=== PATIENT | female | born 1960 | race Caucasian/White ===

== ENCOUNTER 2017-06-27 11:33 | Emergency (ER) | payer BC ==
[2017-06-27] MEDS ORDERED: Sodium Chloride 0.9% 10 ML Syringe FLUSH PRN (11:51)
--- NOTE | 2017-06-27 12:31 | CR ---
Chest: Portable view of the chest was obtained. Comparison: No prior chest x-ray. Heart size at the upper limits of normal. Previous sternotomy is noted for CABG. Mild pulmonary vascular prominence is seen. Lungs otherwise are clear. Bony structures are unremarkable. Impression: 1. Heart size at the upper limits of normal. Mild pulmonary vascular prominence is seen. Without old films uncertain if this pulmonary vascular prominence is acute or chronic. 2. Nothing acute is otherwise seen. Diagnostic code #3
--- NOTE | 2017-06-27 16:00 | EDM.PDOC ---
ED HPI GENERAL MEDICAL PROBLEM - General Chief Complaint: Chest Pain Stated Complaint: [facility] Time Seen by Provider: 06/27/17 11:36 Source of Information: Reports: Patient, Provider History Limitations: Reports: No Limitations - History of Present Illness INITIAL COMMENTS - FREE TEXT/NARRATIVE: The patient presents with mid chest pain that has been on and off for 2 weeks. Five months ago she had 4 vessel bypass. She has been going good since. For the past 2 weeks she has had the pain but no shortness of breath. She denies fever or chills. She has no pain with exertion. She walks her dog in the morning without any problems. She has no abdominal pain, nausea or vomiting. She has no pain in her legs or edema. She saw Dr Monahan and he recommended she come to the ER and get some Onset: Gradual Duration: Week(s): (2) Location: Reports: Chest Quality: Reports: Sharp Severity: Mild Improves with: Reports: Immobilization Worsens with: Reports: Movement (Of her chest) Associated Symptoms: Reports: Chest Pain. Denies: Cough, Fever/Chills, Nausea/ Vomiting, Shortness of Breath Treatments [employer]: Reports: Aspirin, Nitroglycerin - Related Data Allergies Allergy/AdvReac Type Severity Reaction Status Date / Time codeine Allergy Nausea Verified 06/27/17 11:38 lisinopril Allergy Dizziness Verified 06/27/17 11:38 Home Meds: Home Meds Aspirin 325 mg PO DAILY 01/10/17 [History] Cholecalciferol (Vitamin D3) [Vitamin D3] 10,000 unit PO DAILY 01/10/17 [History ] Docusate Sodium 100 mg PO BID 01/10/17 [History] Furosemide [Lasix] 20 mg PO DAILY 01/10/17 [History] Hydrocodone/Acetaminophen [Hydrocodon-Acetaminoph 2.5-325] 1 each PO Q6H PRN [History] Insulin Detemir [Levemir] 18 unit SQ DAILY 01/10/17 [History] L.acidoph,Paracasei, B.lactis [Probiotic] 1 each PO DAILY 01/10/17 [History] Metoprolol Tartrate 12.5 mg PO BID 01/10/17 [History] Potassium Chloride 10 meq PO DAILY 01/10/17 [History] Rosuvastatin [Crestor] 20 mg PO DAILY 01/10/17 [History] SitaGLIPtin [Januvia] 50 mg PO DAILY 01/10/17 [History] metFORMIN [Glucophage] 1,000 mg PO BIDMEALS 01/10/17 [History] traMADol [Ultram] 50 mg PO Q4H PRN 01/10/17 [History] Past Medical History Cardiovascular History: Reports: High Cholesterol, PVD Endocrine/Metabolic History: Reports: Diabetes, Type II - Past Surgical History Cardiovascular Surgical History: Reports: Coronary Artery Bypass Social & Family History - Tobacco Use Smoking Status *Q: Former Smoker Years of Tobacco use: 20 Used Tobacco, but Quit: No - Alcohol Use Days Per Week of Alcohol Use: 0 - Recreational Drug Use Recreational Drug Use: No ED ROS GENERAL - Review of Systems Review Of Systems: See Below Constitutional: Reports: No Symptoms HEENT: Reports: No Symptoms Respiratory: Reports: No Symptoms Cardiovascular: Reports: Chest Pain Endocrine: Reports: No Symptoms GI/Abdominal: Reports: No Symptoms : Reports: No Symptoms Musculoskeletal: Reports: No Symptoms ED EXAM, GENERAL - Physical Exam Exam: See Below Exam Limited By: No Limitations General Appearance: Alert, No Apparent Distress Ears: Normal External Exam Nose: Normal Inspection Head: Atraumatic, Normocephalic Neck: Normal Inspection Respiratory/Chest: No Respiratory Distress, Lungs Clear, Normal Breath Sounds Cardiovascular: Regular Rate, Rhythm, No Edema, No Murmur GI/Abdominal: Soft, Non-Tender, No Organomegaly, No Mass Back Exam: Normal Inspection Extremities: Normal Inspection Neurological: Alert, Oriented, No Motor/Sensory Deficits EKG INTERPRETATION EKG Date: 06/27/17 Time: 11:45 Rhythm: NSR Rate (Beats/Min): 66 [place]: Normal P-Wave: Present QRS: Normal ST-T: Normal QT: Normal EKG Interpretation Comments: Q waves in the inferior leads Course - Vital Signs Last Recorded V/S: Last Vital Signs Temp 97.8 F 06/27/17 11:38 Pulse 80 06/27/17 15:50 Resp 16 06/27/17 15:50 BP 126/62 06/27/17 15:50 Pulse Ox 94 L 06/27/17 15:50 - Orders/Labs/Meds Orders: Active Orders 24 hr Category Date Time Status Cardiac Monitoring [RC] . DIRECTED Care 06/27/17 11:51 Active EKG Documentation Completion [RC] STAT Care 06/27/17 11:51 Active Oxygen Therapy [RC] PRN Care 06/27/17 11:51 Active Peripheral IV Care [RC] . DIRECTED Care 06/27/17 11:51 Active Sodium Chloride 0.9% [Saline Flush] Med 06/27/17 11:51 Active 10 ml FLUSH ASDIRECTED PRN Peripheral IV Insertion Adult [OM.PC] Stat Oth 06/27/17 11:51 Ordered Medication Orders Sodium Chloride (Saline Flush) 10 ml FLUSH ASDIRECTED PRN PRN Reason: Keep Vein Open Last Admin: 06/27/17 12:51 Dose: 10 ml Labs: Laboratory Tests 06/27/17 06/27/17 06/27/17 Range/Units 12:25 12:25 15:00 WBC 8.72 (3.98-10.04) K/mm3 RBC 4.84 (3.98-5.22) M/mm3 Hgb 14.1 (11.2-15.7) gm/L Hct 41.0 (34.1-44.9) % MCV 84.7 (79.4-94.8) fl MCH 29.1 (25.6-32.2) pg MCHC 34.4 (32.2-35.5) g/dl RDW Std Deviation 36.7 (36.4-46.3) fL Plt Count 268 (182-369) K/mm3 MPV 9.4 (9.4-12.3) fl Neut % (Auto) 56.4 (34.0-71.1) % Lymph % (Auto) 32.0 (19.3-51.7) % Pierce % (Auto) 9.3 (4.7-12.5) % Eos % (Auto) 1.8 (0.7-5.8) Baso % (Auto) 0.3 (0.1-1.2) % Neut # (Auto) 4.91 (1.56-6.13) K/mm3 Lymph # (Auto) 2.79 (1.18-3.74) K/mm3 Pierce # (Auto) 0.81 H (0.24-0.36) K/mm3 Eos # (Auto) 0.16 (0.04-0.36) K/mm3 Baso # (Auto) 0.03 (0.01-0.08) K/mm3 Sodium 138 (136-145) mEq/L Potassium 4.2 (3.5-5.1) mEq/L Chloride 102 (98-107) mEq/L Carbon Dioxide 27 (21-32) mEq/L Anion Gap 13.2 (5-15) BUN 15 (7-18) mg/dL Creatinine 0.6 (0.55-1.02) mg/dL Est Cr Clr Drug Dosing 87.18 mL/min Estimated GFR (MDRD) > 60 (>60) mL/min BUN/Creatinine Ratio 25.0 H (14-18) Glucose 138 H (74-106) mg/dL Calcium 9.5 (8.5-10.1) mg/dL Total Bilirubin 0.4 (0.2-1.0) mg/dL AST 39 H (15-37) U/L ALT 54 (14-59) U/L Alkaline Phosphatase 67 (46-116) U/L Troponin I 0.039 0.038 (0.00-0.056) ng/mL Total Protein 7.3 (6.4-8.2) g/dl Albumin 3.5 (3.4-5.0) g/dl Globulin 3.8 gm/dL Albumin/Globulin Ratio 0.9 L (1-2) Meds: Medications Generic Name Dose Route Start Last Admin Trade Name Freq PRN Reason Stop Dose Admin Sodium Chloride 10 ml 06/27/17 11:51 06/27/17 12:51 Saline Flush FLUSH 10 ml ASDIRECTED PRN Administration Keep Vein Open - Re-Assessments/Exams Free Text/Narrative Re-Assessment/Exam: 06/27/17 16:04 I ordered an IV saline lock, EKG, CXR and labs. She had aspirin and nitro on the way in. Her EKG shows NSR with some inferior Q waves. Her CXR was negative. Her CBC and CMP look good. Her troponin was negative. I did a repeat troponin 3 hours later and it was negative. I feel this is chest wall pain. I will discharge her home. Departure - Departure Time of Disposition: 16:10 Disposition: Home, Self-Care 01 Condition: Good Clinical Impression: Chest wall pain Referrals: Jay Jay Mckay MD [Primary Care Provider] - 1 Week Forms: ED Department Discharge Additional Instructions: Take your medication as prescribed. If you have some pain you can take motrin 400mg every 6 hours. Please return if you are worse. Follow up with your doctor in 1 week. - My Orders Last 24 Hours: My Active Orders 06/27/17 11:51 Cardiac Monitoring [RC] . DIRECTED EKG Documentation Completion [RC] STAT Oxygen Therapy [RC] PRN Peripheral IV Care [RC] . DIRECTED Sodium Chloride 0.9% [Saline Flush] 10 ml FLUSH ASDIRECTED PRN Peripheral IV Insertion Adult [OM.PC] Stat - Assessment/Plan Last 24 Hours: My Active Orders 06/27/17 11:51 Cardiac Monitoring [RC] . DIRECTED EKG Documentation Completion [RC] STAT Oxygen Therapy [RC] PRN Peripheral IV Care [RC] . DIRECTED Sodium Chloride 0.9% [Saline Flush] 10 ml FLUSH ASDIRECTED PRN Peripheral IV Insertion Adult [OM.PC] Stat
[2017-06-27 16:48] VITALS: BP 122/66
== END 2017-06-27 16:19 | disposition home or self-care (01) ==
LOC: JD.ED 11:33
DX: R07.89 Other chest pain (principal); E11.9 Type 2 diabetes mellitus without complications; E78.00 Pure hypercholesterolemia, unspecified; Z87.891 Personal history of nicotine dependence; Z95.1 Presence of aortocoronary bypass graft; Z79.82 Long term (current) use of aspirin; Z79.4 Long term (current) use of insulin; Z79.899 Other long term (current) drug therapy; Z88.5 Allergy status to narcotic agent; Z88.8 Allergy status to other drugs, medicaments and biological substances
CPT/HCPCS: 36415; 71010; 80053; 84484; 85025; 93005; 99285; J7050

== ENCOUNTER 2018-01-01 13:42 | Emergency (ER) | payer BC ==
--- NOTE | 2018-01-01 14:58 | CR ---
Chest: Portable view of the chest was obtained. Comparison: Prior chest x-ray of 06/27/17. Heart size and mediastinum are within normal limits for portable technique. Lungs are clear with no acute parenchymal densities. Previous sternotomy is noted for CABG. Bony structures are grossly intact. Impression: 1. Nothing acute is seen. Diagnostic code #2
[2018-01-01] MEDS ORDERED: Insulin Regular, Human 100 Units/ML 3 ML Vial SUBCUT ONE (15:32)
--- NOTE | 2018-01-01 16:38 | EDM.PDOC ---
ED HPI GENERAL MEDICAL PROBLEM - General Chief Complaint: Chest Pain Stated Complaint: CHEST TIGHTNESS Time Seen by Provider: 01/01/18 13:56 Source of Information: Reports: Patient, RN Notes Reviewed - History of Present Illness INITIAL COMMENTS - FREE TEXT/NARRATIVE: 57-year-old lady comes in with four-day duration of chest discomfort. This is been primarily mid chest and right anterior chest. He does have history of known coronary artery disease with previous multivessel bypass surgery about a year ago. Since the bypass surgery she "put on a lot of weight". She is type II diabetic. No recent cough fever or chills. Pain does not radiate to the back neck shoulder or arm. Pain is worse with deep breathing and also worse with certain types of motion. She does work as a checkout type person at [employer] Chest Pain Score (Numeric/FACES): 4 - Related Data Allergies Allergy/AdvReac Type Severity Reaction Status Date / Time codeine Allergy Nausea Verified 01/01/18 14:00 lisinopril Allergy Dizziness Verified 01/01/18 14:00 Home Meds: Home Meds Aspirin 325 mg PO DAILY 01/10/17 [History] Potassium Chloride 10 meq PO DAILY 01/10/17 [History] Rosuvastatin [Crestor] 20 mg PO DAILY 01/10/17 [History] Furosemide [Lasix] 20 mg PO DAILY 01/01/18 [History] Metoprolol Succinate 25 mg PO DAILY 01/01/18 [History] Tresiba 44 units SUBCUT DAILY 01/01/18 [History] metFORMIN [Glucophage XR] 1,000 mg PO BID 01/01/18 [History] Past Medical History Cardiovascular History: Reports: Bypass, High Cholesterol, PVD Endocrine/Metabolic History: Reports: Diabetes, Type II - Past Surgical History Cardiovascular Surgical History: Reports: Coronary Artery Bypass Social & Family History - Tobacco Use Smoking Status *Q: Never Smoker Years of Tobacco use: 20 Used Tobacco, but Quit: No - Caffeine Use Caffeine Use: Reports: Coffee - Alcohol Use Days Per Week of Alcohol Use: 0 - Recreational Drug Use Recreational Drug Use: No ED ROS GENERAL - Review of Systems Review Of Systems: See Below Constitutional: Denies: Fever, Chills HEENT: Denies: Throat Pain Respiratory: Denies: Shortness of Breath, Wheezing, Cough Cardiovascular: Reports: Chest Pain (For about the past 4 days) GI/Abdominal: Denies: Abdominal Pain, Nausea, Vomiting Musculoskeletal: Denies: Neck Pain, Shoulder Pain, Arm Pain, Back Pain Skin: Reports: No Symptoms Neurological: Denies: Numbness, Tingling ED EXAM, GENERAL - Physical Exam Exam: See Below General Appearance: Alert, No Apparent Distress Eye Exam: Bilateral Eye: PERRL Throat/Mouth: Normal Inspection, Normal Oropharynx Head: No: Facial Swelling Neck: Supple, Full Range of Motion Respiratory/Chest: No Respiratory Distress, Lungs Clear, Normal Breath Sounds, Other (There is quite severe tenderness and also reproducible pain with motion of the right sternal border) Cardiovascular: Regular Rate, Rhythm GI/Abdominal: Soft, Non-Tender Back Exam: No: CVA Tenderness (L), CVA Tenderness (R) Extremities: Normal Inspection. No: Pedal Edema Neurological: Alert, No Motor/Sensory Deficits Skin Exam: Warm, Dry, Normal Color EKG INTERPRETATION EKG Date: 01/01/18 Rhythm: NSR [place]: Normal P-Wave: Present QRS: Other (Q waves inferior leads) ST-T: Normal Course - Vital Signs Last Recorded V/S: Last Vital Signs Temp 98.8 F 01/01/18 16:55 Pulse 74 01/01/18 16:55 Resp 16 01/01/18 16:55 BP 131/76 01/01/18 16:55 Pulse Ox 98 01/01/18 16:55 - Orders/Labs/Meds Orders: Active Orders 24 hr Category Date Time Status EKG 12 Lead [EKG Documentation Completion] [RC] STAT Care 01/01/18 14:06 Active Labs: Laboratory Tests 01/01/18 01/01/18 01/01/18 Range/Units 14:22 14:22 16:51 WBC 9.16 (3.98-10.04) K/mm3 RBC 4.99 (3.98-5.22) M/mm3 Hgb 14.3 (11.2-15.7) gm/L Hct 41.7 (34.1-44.9) % MCV 83.6 (79.4-94.8) fl MCH 28.7 (25.6-32.2) pg MCHC 34.3 (32.2-35.5) g/dl RDW Std Deviation 36.8 (36.4-46.3) fL Plt Count 271 (182-369) K/mm3 MPV 9.7 (9.4-12.3) fl Neut % (Auto) 61.6 (34.0-71.1) % Lymph % (Auto) 28.8 (19.3-51.7) % [place] % (Auto) 7.8 (4.7-12.5) % Eos % (Auto) 1.2 (0.7-5.8) Baso % (Auto) 0.2 (0.1-1.2) % Neut # (Auto) 5.64 (1.56-6.13) K/mm3 Lymph # (Auto) 2.64 (1.18-3.74) K/mm3 [place] # (Auto) 0.71 H (0.24-0.36) K/mm3 Eos # (Auto) 0.11 (0.04-0.36) K/mm3 Baso # (Auto) 0.02 (0.01-0.08) K/mm3 Sodium 136 (136-145) mEq/L Potassium 3.9 (3.5-5.1) mEq/L Chloride 97 L (98-107) mEq/L Carbon Dioxide 26 (21-32) mEq/L Anion Gap 16.9 H (5-15) BUN 16 (7-18) mg/dL Creatinine 0.7 (0.55-1.02) mg/dL Est Cr Clr Drug Dosing 62.16 mL/min Estimated GFR (MDRD) > 60 (>60) mL/min BUN/Creatinine Ratio 22.9 H (14-18) Glucose 332 H (74-106) mg/dL POC Glucose 237 H (70-105) mg/dL Calcium 8.8 (8.5-10.1) mg/dL Total Bilirubin 0.2 (0.2-1.0) mg/dL AST 23 (15-37) U/L ALT 42 (14-59) U/L Alkaline Phosphatase 83 (46-116) U/L Troponin I 0.024 (0.00-0.056) ng/mL Total Protein 7.6 (6.4-8.2) g/dl Albumin 3.6 (3.4-5.0) g/dl Globulin 4.0 gm/dL Albumin/Globulin Ratio 0.9 L (1-2) Meds: Medications Discontinued Medications Generic Name Dose Route Start Last Admin Trade Name Mony PRN Reason Stop Dose Admin Insulin Human Regular 8 unit 01/01/18 15:32 01/01/18 15:41 Humulin R SUBCUT 01/01/18 15:33 8 units ONETIME ONE Administration - Re-Assessments/Exams Free Text/Narrative Re-Assessment/Exam: 01/01/18 19:20 EKG shows Q waves inferior leads, does not show acute changes. She has very significant wall tenderness right sternal border. The pain is worse with deep breathing and worse with certain types of motion, twisting and movement of the right arm and shoulder. Initial troponin was 0.0-4. I did offer and suggest that we do a repeat 3 hour troponin but patient was very adamantly against that. Is quite eager to be discharged, go home. Clinically she is not showing any sign of acute coronary syndrome. She's continued in sinus rhythm, no ectopy. Despite the quite severe tenderness of the right sternal border she does not appear to be in any significant discomfort otherwise. Blood sugar was elevated, we did give insulin 8 units subcutaneous. Talked to her about diet, exercise and appropriate follow-up. Discharge instructions as documented. 01/01/18 19:21 Departure - Departure Time of Disposition: 16:31 Disposition: Home, Self-Care 01 Condition: Fair Clinical Impression: Chest wall pain, Costochondritis, Hyperglycemia Instructions: Costochondritis, [id number], Chest Wall Pain, [id number], Hyperglycemia, [id number] Referrals: Jay Jay Mckay MD [Primary Care Provider] - Forms: ED Department Discharge, ED Return to Work/School Form Additional Instructions: Research the Mediterranean diet, work hard to reduce our sugar and carbs type intake. Rest back, avoid heavy lifting for the next few days, you may safely take Tylenol 2-3 times daily if needed. alternate ice and heat to the area of discomfort as needed. Follow-up with Dr. Durand in about one week for recheck, call for appointment, return to ED as needed if symptoms worsening in any way - My Orders Last 24 Hours: My Active Orders 01/01/18 14:06 EKG 12 Lead [EKG Documentation Completion] [RC] STAT - Assessment/Plan Last 24 Hours: My Active Orders 01/01/18 14:06 EKG 12 Lead [EKG Documentation Completion] [RC] STAT
[2018-01-01 16:56] VITALS: BP 131/76
== END 2018-01-01 17:03 | disposition home or self-care (01) ==
LOC: JD.ED 13:42
DX: M94.0 Chondrocostal junction syndrome [Tietze] (principal); I25.810 Atherosclerosis of coronary artery bypass graft(s) without angina pectoris; E11.65 Type 2 diabetes mellitus with hyperglycemia; E78.00 Pure hypercholesterolemia, unspecified; Z88.5 Allergy status to narcotic agent; Z88.8 Allergy status to other drugs, medicaments and biological substances; Z79.899 Other long term (current) drug therapy; Z79.82 Long term (current) use of aspirin; Z79.84 Long term (current) use of oral hypoglycemic drugs; Z95.1 Presence of aortocoronary bypass graft
CPT/HCPCS: 36415; 71045; 80053; 82962; 84484; 85025; 93005; 96372; 99285; J1815; 93010; 99284-25

== ENCOUNTER 2021-11-11 07:13 | Day surgery (SDC) | payer BC, MEDICAID ==
[2021-11-11] MEDS: Polymyxin B/Trimethoprim 10 ML Bottle EYELF SCH ×3 (07:09→08:21)
[~2021-11-11 07:13] MED LIST: Cefuroxime 10 MG/ML SYRINGE EYELF SCH; Lidocaine 1% PF 2 ML SDV INJECT SCH; Pilocarpine 4% Ophth Soln 15 ML Bot EYELF SCH
[2021-11-11] MEDS: Brimonidine 0.2% Ophth Soln 5 ML Bottle EYELF SCH ×3 (07:13→08:21)
[2021-11-11] MEDS: Phenylephrine 2.5% Ophth Soln 2 ML Bot EYELF SCH ×5 (07:17→08:00)
[2021-11-11] MEDS: Tropicamide 1% Ophth Soln 15 ML Bottle EYELF SCH ×4 (07:21→07:52)
[2021-11-11] MEDS: Tetracaine HCl/PF 0.5% 4 ML Bottle EYEBOTH SCH ×2 (07:53→08:10)
[2021-11-11 08:33] VITALS: BP 128/77; PULSE 58
== END 2021-11-11 08:31 | disposition home or self-care (01) ==
LOC: JD.SDS 07:13
PROVIDERS: ATTEND Ophthalmology
DX: E10.36 Type 1 diabetes mellitus with diabetic cataract (principal); H25.813 Combined forms of age-related cataract, bilateral; E10.51 Type 1 diabetes mellitus with diabetic peripheral angiopathy without gangrene; E10.3293 Type 1 diabetes mellitus with mild nonproliferative diabetic retinopathy without macular edema, bilateral; I10 Essential (primary) hypertension; F17.200 Nicotine dependence, unspecified, uncomplicated; K21.9 Gastro-esophageal reflux disease without esophagitis; E78.00 Pure hypercholesterolemia, unspecified; Z88.1 Allergy status to other antibiotic agents; Z95.1 Presence of aortocoronary bypass graft; Z90.89 Acquired absence of other organs; Z79.84 Long term (current) use of oral hypoglycemic drugs; Z79.899 Other long term (current) drug therapy
CPT/HCPCS: 66984; C1780; J0697

== ENCOUNTER 2021-12-09 07:33 | Day surgery (SDC) | payer BC ==
[2021-12-09] MEDS: Polymyxin B/Trimethoprim 10 ML Bottle EYERT SCH ×3 (07:22→09:01)
[2021-12-09] MEDS: Brimonidine 0.2% Ophth Soln 5 ML Bottle EYERT SCH ×3 (07:25→09:01)
[2021-12-09] MEDS: Phenylephrine 2.5% Ophth Soln 2 ML Bot EYERT SCH ×4 (07:31→08:06)
[~2021-12-09 07:33] MED LIST changes: -Cefuroxime 10 MG/ML SYRINGE EYELF SCH; +Cefuroxime 10 MG/ML SYRINGE EYERT SCH; -Pilocarpine 4% Ophth Soln 15 ML Bot EYELF SCH; +Pilocarpine 4% Ophth Soln 15 ML Bot EYERT SCH
[2021-12-09] MEDS: Tropicamide 1% Ophth Soln 15 ML Bottle EYERT SCH ×4 (07:36→08:13)
[2021-12-09] MEDS: Tetracaine HCl/PF 0.5% 4 ML Bottle EYEBOTH SCH ×4 (08:25→08:48)
[2021-12-09 09:19] VITALS: BP 174/86; PULSE 58
== END 2021-12-09 09:10 | disposition home or self-care (01) ==
LOC: JD.SDS 07:33
PROVIDERS: ATTEND Ophthalmology
DX: E10.36 Type 1 diabetes mellitus with diabetic cataract (principal); H43.813 Vitreous degeneration, bilateral; H25.811 Combined forms of age-related cataract, right eye; H16.223 Keratoconjunctivitis sicca, not specified as Sjogren's, bilateral; E78.00 Pure hypercholesterolemia, unspecified; I10 Essential (primary) hypertension; F17.200 Nicotine dependence, unspecified, uncomplicated; M06.9 Rheumatoid arthritis, unspecified; Z98.890 Other specified postprocedural states; Z79.899 Other long term (current) drug therapy; Z79.82 Long term (current) use of aspirin; Z79.84 Long term (current) use of oral hypoglycemic drugs; Z88.5 Allergy status to narcotic agent; Z96.1 Presence of intraocular lens
CPT/HCPCS: 66984; 82947; C1780; J0697

== ENCOUNTER 2023-01-21 08:31 | Observation (INO) | payer BC ==
[2023-01-21] MEDS ORDERED: HYDROmorphone 0.5 MG/0.5 ML Syringe IVPUSH ONE ×2 (09:05→10:47)
[2023-01-21] MEDS ORDERED: Ondansetron 4 MG/2 ML SDV IVPUSH ONE ×2 (09:05→14:43)
[2023-01-21] MEDS ORDERED: Sodium Chloride 0.9% 1,000 ML IV ONE (09:05)
[2023-01-21 09:33] LABS: BASOPHILS ABSOLUTE AUTO 0.02 K/mm3 (0.01-0.08); BASOPHILS PERCENT AUTO 0.2 % (0.1-1.2); EOSINOPHILS ABSOLUTE AUTO 0.01 K/mm3 (0.04-0.36); EOSINOPHILS PERCENT AUTO 0.1 (0.7-5.8); HEMATOCRIT 59.3 % (34.1-44.9); HEMOGLOBIN 19.7 gm/dl (11.2-15.7); IMMATURE GRAN ABSOLUTE AUTO 0.02 K/mm3 (0.00-0.10); IMMATURE GRAN PERCENT AUTO 0.2 % (<=1.0); LYMPHOCYTES ABSOLUTE AUTO 1.05 K/mm3 (1.18-3.74); LYMPHOCYTES PERCENT AUTO 8.1 % (19.3-51.7); MEAN CORPUSCULAR HEMOGLOBIN 27.1 pg (25.6-32.2); MEAN CORPUSCULAR HGB CONC 33.2 g/dl (32.2-35.5); MEAN CORPUSCULAR VOLUME 81.7 fl (79.4-94.8); MEAN PLATELET VOLUME 9.9 fl (9.4-12.3); MONOCYTES ABSOLUTE AUTO 0.31 K/mm3 (0.24-0.36); MONOCYTES PERCENT AUTO 2.4 % (4.7-12.5); NEUTROPHILS ABSOLUTE AUTO 11.55 K/mm3 (1.56-6.13); PLATELET COUNT,PLT 225 K/mm3 (182-369); RED BLOOD CELL COUNT 7.26 M/mm3 (3.98-5.22); WHITE BLOOD CELL COUNT,WBC 12.96 K/mm3 (3.98-10.04)
[2023-01-21] MEDS ORDERED: Iopamidol 612 MG/ML 100 ML Bottle IVPUSH ONE (09:37)
[2023-01-21] MEDS ORDERED: Sodium Chloride 0.9% 10 ML Syringe FLUSH ONE (09:37)
[2023-01-21 09:40] LABS: CORONAVIRUS COVID-19 NAA NEGATIVE (NEGATIVE); INFLUENZA A NAA NEGATIVE (NEGATIVE)
[2023-01-21 09:51] LABS: LACTIC ACID 1.5 mmol/L (0.4-2.0)
[2023-01-21 09:58] LABS: A/G RATIO 0.8 (1-2); ALANINE AMINOTRANSFERASE,ALT 50 U/L (14-59); ALBUMIN 3.9 g/dl (3.4-5.0); ALKALINE PHOSPHATASE 88 U/L (46-116); ANION GAP 18.2 (5-15); ASPARTATE AMNIOTRANSFERASE,AST 33 U/L (15-37); BILIRUBIN TOTAL 0.6 mg/dL (0.2-1.0); BLOOD UREA NITROGEN,BUN 20 mg/dL (7-18); BUN/CREATININE RATIO 33.3 (14-18); C-REACTIVE PROTEIN <0.2 mg/dL (<1.0); CALCIUM 9.6 mg/dL (8.5-10.1); CARBON DIOXIDE,CO2 22 mEq/L (21-32); CHLORIDE,CL 101 mEq/L (98-107); CREATININE 0.6 mg/dL (0.55-1.02); EST CRCL DRUG DOSING (CG) 68.04 mL/min; ESTIMATED GFR 100 mL/min (>60); GLUCOSE RANDOM 174 mg/dL (70-99); MAGNESIUM 1.9 mg/dL (1.8-2.4); POTASSIUM,K 4.2 mEq/L (3.5-5.1); PROTEIN TOTAL,TP 8.9 g/dl (6.4-8.2); SODIUM,NA 137 mEq/L (136-145)
[2023-01-21 10:00] LABS: TROPONIN I HIGH SENSITIVITY 65 pg/mL (<=51)
[2023-01-21] MEDS ORDERED: Metoclopramide 10 MG/2 ML SDV IVPUSH ONE (10:47)
[2023-01-21 10:48] LABS: APPEARANCE,URINE SLT CLOUDY (Clear); BILIRUBIN,URINE NEGATIVE (Negative); COLOR,URINE YELLOW (Yellow); GLUCOSE,URINE 2+ (Negative); KETONES,URINE 2+ (Negative); LEUKOCYTE ESTERASE,URINE TRACE (Negative); NITRITE,URINE NEGATIVE (Negative); OCCULT BLOOD,URINE 2+ (Negative); PROTEIN,URINE 3+ (Negative); UROBILINOGEN,URINE 0.2 (0.2-1.0)
[2023-01-21 11:10] LABS: BACTERIA,URINE MODERATE /hpf (FEW); MUCUS,URINE NOT SEEN /hpf (FEW); SQUAMOUS EPITHELIAL CELLS,UR NOT SEEN /hpf (0-5); WBC CLUMPS,URINE FEW /hpf (NOT SEEN); WBC,URINE 50-75 /hpf (0-5)
[2023-01-21 11:12] LABS: RBC,URINE 75-100 /hpf (0-5)
[2023-01-21] MEDS: Sodium Chloride 0.9% 1,000 ML IV SCH ×2 (11:14→18:27)
[2023-01-21] MEDS ORDERED: Iopamidol 755 Mg/ML 100 ML Bottle IVPUSH ONE (11:50)
[2023-01-21] MEDS ORDERED: Sodium Chloride 0.9% 100 ML IV SCH (12:00)
[2023-01-21] MEDS ORDERED: Labetalol 100 MG/20 ML MDV IVPUSH ONE ×2 (12:28→13:25)
[2023-01-21] MEDS ORDERED: cefTRIAXone 1 GM in Sodium Chloride 0.9% 100 ML IV ONE (12:50)
[2023-01-21] MEDS ORDERED: Sodium Chloride 0.9% 100 ML ONE (13:14)
[2023-01-21] MEDS ORDERED: cefTRIAXone 1 GM Vial ONE (13:14)
[2023-01-21] MEDS ORDERED: Acetaminophen 325 MG Tab PO PRN (15:08)
[2023-01-21] MEDS ORDERED: Docusate Sodium 100 MG Cap PO PRN (15:08)
[2023-01-21] MEDS: Insulin Regular, Human 100 Units/ML 3 ML Vial SUBCUT SCH (18:28)
[2023-01-21] MEDS: Ondansetron 4 MG/2 ML SDV IVPUSH PRN (21:38)
[2023-01-22] MEDS: Sodium Chloride 0.9% 1,000 ML IV SCH ×2 (01:30→10:07)
[2023-01-22] MEDS: Ondansetron 4 MG/2 ML SDV IVPUSH PRN (03:34)
[2023-01-22] MEDS: oxyCODONE 5 MG Tab PO PRN ×3 (05:03→16:49)
[2023-01-22 05:55] LABS: EOSINOPHILS PERCENT AUTO 0 (0.7-5.8); HEMATOCRIT 53.1 % (34.1-44.9); IMMATURE GRAN ABSOLUTE AUTO 0.02 K/mm3 (0.00-0.10); IMMATURE GRAN PERCENT AUTO 0.2 % (<=1.0); LYMPHOCYTES ABSOLUTE AUTO 1.08 K/mm3 (1.18-3.74); LYMPHOCYTES PERCENT AUTO 10.1 % (19.3-51.7); MEAN CORPUSCULAR HEMOGLOBIN 27.2 pg (25.6-32.2); MEAN CORPUSCULAR HGB CONC 32.6 g/dl (32.2-35.5); MEAN CORPUSCULAR VOLUME 83.4 fl (79.4-94.8); MEAN PLATELET VOLUME 10.2 fl (9.4-12.3); MONOCYTES ABSOLUTE AUTO 0.79 K/mm3 (0.24-0.36); MONOCYTES PERCENT AUTO 7.4 % (4.7-12.5); NEUTROPHILS ABSOLUTE AUTO 8.81 K/mm3 (1.56-6.13); NEUTROPHILS PERCENT AUTO 82.3 % (34.0-71.1); PLATELET COUNT,PLT 243 K/mm3 (182-369); RED BLOOD CELL COUNT 6.37 M/mm3 (3.98-5.22)
[2023-01-22 05:56] LABS: A/G RATIO 0.8 (1-2); ALBUMIN 3.2 g/dl (3.4-5.0); ANION GAP 14.8 (5-15); BILIRUBIN TOTAL 0.5 mg/dL (0.2-1.0); BUN/CREATININE RATIO 21.4 (14-18); CALCIUM 8.2 mg/dL (8.5-10.1); CREATININE 0.7 mg/dL (0.55-1.02); EST CRCL DRUG DOSING (CG) 58.32 mL/min; MAGNESIUM 1.7 mg/dL (1.8-2.4); POTASSIUM,K 3.8 mEq/L (3.5-5.1); PROTEIN TOTAL,TP 7.4 g/dl (6.4-8.2)
[2023-01-22 05:59] LABS: HEMOGLOBIN 17.3 gm/dl (11.2-15.7)
[2023-01-22] MEDS ORDERED: traMADol 50 MG Tab PO PRN (07:00)
[2023-01-22] MEDS: Heparin Sodium 5,000 Units/ML Vial SUBCUT SCH ×2 (08:27→15:36)
[2023-01-22] MEDS ORDERED: Nicotine 14 MG/24 Hr Patch TRDERM SCH (09:00)
[2023-01-22] MEDS ORDERED: Empagliflozin 25 MG Tab PO SCH (09:00)
[2023-01-22] MEDS: Insulin Regular, Human 100 Units/ML 3 ML Vial SUBCUT SCH ×2 (09:00→13:11)
[2023-01-22] MEDS ORDERED: Aspirin 81 MG Tab.EC PO SCH (09:00)
[2023-01-22] MEDS: Ondansetron 4 MG Tab.DIS PO PRN ×2 (10:07→15:39)
[2023-01-22] MEDS ORDERED: Potassium Chloride 10 MEQ Tab.ER PO PRN (10:30)
[2023-01-22 11:37] VITALS: BP 124/83; PULSE 77
[2023-01-22] MEDS ORDERED: cefTRIAXone 2 GM in Sodium Chloride 0.9% 100 ML IV SCH (13:00)
[2023-01-22] MEDS ORDERED: Heparin Sodium/D5W 25,000 UNITS/500 ML BAG IV SCH (16:15)
[2023-01-22] MEDS ORDERED: Sodium Chloride 0.9% 1,000 ML IV SCH (17:00)
[2023-01-22] MEDS ORDERED: Rosuvastatin 20 MG Tab PO SCH (19:00)
[2023-01-22] MEDS ORDERED: Losartan 100 MG Tab PO SCH (19:00)
[2023-01-22] MEDS ORDERED: Metoprolol Succinate 25 MG Tab.ER PO SCH (19:00)
[2023-01-23] MEDS ORDERED: Pantoprazole 40 MG Tab.CR PO SCH (06:00)
== END 2023-01-22 17:30 ==
LOC: JD.ED 08:31 → JD.MS 14:26
PROVIDERS: ADMIT Internal Medicine; ATTEND Internal Medicine
DX: A08.4 Viral intestinal infection, unspecified (principal); E86.0 Dehydration; R74.8 Abnormal levels of other serum enzymes; E11.51 Type 2 diabetes mellitus with diabetic peripheral angiopathy without gangrene; N39.0 Urinary tract infection, site not specified; I67.1 Cerebral aneurysm, nonruptured; K21.9 Gastro-esophageal reflux disease without esophagitis; E11.42 Type 2 diabetes mellitus with diabetic polyneuropathy; I25.10 Atherosclerotic heart disease of native coronary artery without angina pectoris; E78.00 Pure hypercholesterolemia, unspecified; I21.A1 Myocardial infarction type 2; F17.210 Nicotine dependence, cigarettes, uncomplicated; Z20.822 Contact with and (suspected) exposure to COVID-19; Z88.5 Allergy status to narcotic agent; Z88.8 Allergy status to other drugs, medicaments and biological substances; Z79.4 Long term (current) use of insulin; Z79.84 Long term (current) use of oral hypoglycemic drugs; Z79.899 Other long term (current) drug therapy; Z95.1 Presence of aortocoronary bypass graft
CPT/HCPCS: 0240U; 36415; 70450; 70496; 74177; 80053; 81001; 82947; 83605; 83735; 83880; 84443; 84484; 85025; 85379; 86140; 87040; 87086; 93005; 96361; 96365; 96375; 96376; 99285; A9270; J0696; J1170; J1644; J1815; J2405; J2765; J3490; J7030; Q9967; 93010; 96372; G0378

== ENCOUNTER 2023-10-07 05:08 | Emergency (ER) | payer BC ==
[2023-10-07] MEDS ORDERED: Metoclopramide 10 MG/2 ML SDV IVPUSH ONE (06:24)
[2023-10-07] MEDS ORDERED: Sodium Chloride 0.9% 1,000 ML IV SCH (06:30)
[2023-10-07 06:32] LABS: BASOPHILS ABSOLUTE AUTO 0.1 K/mm3 (0.0-0.2); BASOPHILS PERCENT AUTO 0.3 % (0.0-1.0); EOSINOPHILS ABSOLUTE AUTO 0.1 K/mm3 (0.0-0.4); EOSINOPHILS PERCENT AUTO 0.6 % (0.0-6.0); HEMATOCRIT 53.6 % (37.0-47.0); HEMOGLOBIN 16.8 gm/dl (12.0-16.0); IMMATURE GRAN ABSOLUTE AUTO 0.06 K/mm3 (0.00-0.05); IMMATURE GRAN PERCENT AUTO 0.4 % (0.0-0.4); LYMPHOCYTES ABSOLUTE AUTO 0.5 K/mm3 (1.0-4.8); LYMPHOCYTES PERCENT AUTO 2.9 % (24.0-44.0); MEAN CORPUSCULAR HEMOGLOBIN 27.4 pg (28.0-32.0); MEAN CORPUSCULAR HGB CONC 31.3 g/dl (32.0-36.0); MEAN CORPUSCULAR VOLUME 87.3 fl (83.0-99.0); MEAN PLATELET VOLUME 10.8 fl (9.4-12.3); MONOCYTES ABSOLUTE AUTO 0.5 K/mm3 (0.0-0.8); MONOCYTES PERCENT AUTO 3.4 % (0.0-8.0); NEUTROPHILS ABSOLUTE AUTO 14.5 K/mm3 (1.8-7.7); NEUTROPHILS PERCENT AUTO 92.4 % (41.0-71.0); PLATELET COUNT,PLT 248 K/mm3 (150-400); RED BLOOD CELL COUNT 6.14 M/mm3 (4.10-5.30); WHITE BLOOD CELL COUNT,WBC 15.69 K/mm3 (3.9-11.3)
[2023-10-07] MEDS ORDERED: Acetaminophen 325 MG Tab PO ONE (06:45)
[2023-10-07 06:49] LABS: ALANINE AMINOTRANSFERASE,ALT 41 U/L (14-59); ALBUMIN 3.8 g/dl (3.4-5.0); ALKALINE PHOSPHATASE 69 U/L (46-116); ASPARTATE AMNIOTRANSFERASE,AST 27 U/L (15-37); BILIRUBIN TOTAL 0.5 mg/dL (0.2-1.0); BLOOD UREA NITROGEN,BUN 24 mg/dL (7-18); BUN/CREATININE RATIO 34.3 (14-18); C-REACTIVE PROTEIN <0.2 mg/dL (<1.0); CALCIUM 9.2 mg/dL (8.5-10.1); CARBON DIOXIDE,CO2 26 mEq/L (21-32); CHLORIDE,CL 102 mEq/L (98-107); CREATININE 0.7 mg/dL (0.55-1.02); EST CRCL DRUG DOSING (CG) 57.55 mL/min; ESTIMATED GFR 96 mL/min (>60); GLUCOSE RANDOM 166 mg/dL (70-99); PROTEIN TOTAL,TP 7.5 g/dl (6.4-8.2); SODIUM,NA 140 mEq/L (136-145)
[2023-10-07 06:53] LABS: MAGNESIUM 2.2 mg/dL (1.8-2.4)
[2023-10-07 06:58] LABS: SLIDE REVIEW ABNORMAL SMEAR
[2023-10-07 07:16] LABS: APPEARANCE,URINE CLOUDY (Clear); BILIRUBIN,URINE NEGATIVE (Negative); COLOR,URINE YELLOW (Yellow); GLUCOSE,URINE 3+ (Negative); KETONES,URINE 1+ (Negative); LEUKOCYTE ESTERASE,URINE 1+ (Negative); NITRITE,URINE POSITIVE (Negative); OCCULT BLOOD,URINE TRACE-LYSED (Negative); PROTEIN,URINE 2+ (Negative); UROBILINOGEN,URINE 0.2 (0.2-1.0)
[2023-10-07 07:21] LABS: CORONAVIRUS COVID-19 NAA NEGATIVE (NEGATIVE); INFLUENZA A NAA NEGATIVE (NEGATIVE); RESPIRATORY SYNCYTIAL VIR NAA NEGATIVE (NEGATIVE)
[2023-10-07 07:22] LABS: EPITHELIAL CELLS,URINE 0-5 /hpf (0-5); WBC,URINE 30-40 /hpf (0-5)
[2023-10-07 07:23] LABS: BACTERIA,URINE MANY /hpf (FEW); MUCUS,URINE FEW /hpf (FEW)
[2023-10-07 07:32] LABS: HEMOGLOBIN A1C 6.3 %
[2023-10-07] MEDS ORDERED: cefTRIAXone 2 GM in Sodium Chloride 0.9% 100 ML IV ONE (08:01)
[2023-10-07] MEDS ORDERED: Sodium Chloride 0.9% 10 ML Syringe FLUSH ONE (09:00)
[2023-10-07] MEDS ORDERED: Iopamidol 612 MG/ML 100 ML Bottle IVPUSH ONE (09:00)
[2023-10-07 16:26] VITALS: BP 88/48; PULSE 83
== END 2023-10-07 11:13 | disposition home or self-care (01) ==
LOC: JD.ED 05:08
DX: N30.00 Acute cystitis without hematuria (principal); R77.8 Other specified abnormalities of plasma proteins; I25.10 Atherosclerotic heart disease of native coronary artery without angina pectoris; E78.00 Pure hypercholesterolemia, unspecified; K21.9 Gastro-esophageal reflux disease without esophagitis; I10 Essential (primary) hypertension; I25.2 Old myocardial infarction; E11.9 Type 2 diabetes mellitus without complications; Z88.5 Allergy status to narcotic agent; Z88.8 Allergy status to other drugs, medicaments and biological substances; Z79.82 Long term (current) use of aspirin; Z79.899 Other long term (current) drug therapy
CPT/HCPCS: 0241U; 36415; 70450; 71045; 74177; 80053; 81001; 83036; 83735; 83880; 84484; 85025; 86140; 87040; 87086; 87088; 87186; 93005; 96361; 96365; 96375; 99285; A9270; J0696; J2765; J3490; J7030; Q9967; 93010; 99284

== ENCOUNTER 2025-01-26 11:03 | Emergency (ER) | payer BC, MEDICARE ==
[2025-01-26 11:25] LABS: BASOPHILS ABSOLUTE AUTO 0.1 K/mm3 (0.0-0.2); BASOPHILS PERCENT AUTO 0.4 % (0.0-1.0); EOSINOPHILS PERCENT AUTO 0.1 % (0.0-6.0); HEMATOCRIT 53.7 % (37.0-47.0); HEMOGLOBIN 17.8 gm/dl (12.0-16.0); IMMATURE GRAN ABSOLUTE AUTO 0.07 K/mm3 (0.00-0.05); IMMATURE GRAN PERCENT AUTO 0.4 % (0.0-0.4); LYMPHOCYTES ABSOLUTE AUTO 1.7 K/mm3 (1.0-4.8); LYMPHOCYTES PERCENT AUTO 9.2 % (24.0-44.0); MEAN CORPUSCULAR HGB CONC 33.1 g/dl (32.0-36.0); MEAN CORPUSCULAR VOLUME 90.6 fl (83.0-99.0); MONOCYTES ABSOLUTE AUTO 0.8 K/mm3 (0.0-0.8); MONOCYTES PERCENT AUTO 4.1 % (0.0-8.0); NEUTROPHILS PERCENT AUTO 85.8 % (41.0-71.0); PLATELET COUNT,PLT 246 K/mm3 (150-400); RED BLOOD CELL COUNT 5.93 M/mm3 (4.10-5.30); WHITE BLOOD CELL COUNT,WBC 18.56 K/mm3 (3.9-11.3)
[2025-01-26] MEDS: Ondansetron 4 MG/2 ML SDV IVPUSH ONE (11:29)
[2025-01-26] MEDS: Sodium Chloride 0.9% 1,000 ML IV ONE (11:36)
[2025-01-26] MEDS ORDERED: Naloxone 0.4 MG/ML SDV IVPUSH PRN ×2 (11:43→14:20)
[2025-01-26 11:54] LABS: ALBUMIN 4.6 g/dl (3.4-5.0); ANION GAP 14.9 (5-15); BILIRUBIN TOTAL 0.7 mg/dL (0.2-1.0); CALCIUM 9.9 mg/dL (8.5-10.1); EST CRCL DRUG DOSING (CG) 39.75 mL/min; POTASSIUM,K 3.9 mEq/L (3.5-5.1); PROTEIN TOTAL,TP 9.2 g/dl (6.4-8.2)
[2025-01-26 12:13] LABS: MAGNESIUM 2.4 mg/dL (1.8-2.4)
[2025-01-26] MEDS: Aspirin 81 MG Tab.Chew PO ONE (12:13)
[2025-01-26] MEDS: Morphine 2 MG/ML SYRINGE IVPUSH ONE ×2 (12:13→14:41)
[2025-01-26 12:14] LABS: C-REACTIVE PROTEIN 1.71 mg/dL (<0.30)
[2025-01-26] MEDS: Aspirin 81 MG Tab.Chew ONE (12:24)
[2025-01-26] MEDS: Iopamidol 612 MG/ML 100 ML Bottle IVPUSH ONE (12:27)
[2025-01-26] MEDS: Sodium Chloride 0.9% 10 ML Syringe FLUSH ONE (12:27)
[2025-01-26 12:32] LABS: APPEARANCE,URINE CLEAR (Clear); BILIRUBIN,URINE NEGATIVE (Negative); COLOR,URINE YELLOW (Yellow); GLUCOSE,URINE 3+ (Negative); KETONES,URINE 1+ (Negative); LEUKOCYTE ESTERASE,URINE NEGATIVE (Negative); NITRITE,URINE NEGATIVE (Negative); OCCULT BLOOD,URINE TRACE-INTACT (Negative); PROTEIN,URINE 3+ (Negative); UROBILINOGEN,URINE 0.2 (0.2-1.0)
[2025-01-26 12:45] LABS: BACTERIA,URINE FEW /hpf (FEW); EPITHELIAL CELLS,URINE 0-5 /hpf (0-5); MUCUS,URINE NOT SEEN /hpf (FEW); RBC,URINE 0-5 /hpf (0-5); WBC,URINE 0-5 /hpf (0-5)
[2025-01-26] MEDS: Labetalol 100 MG/20 ML MDV IVPUSH ONE (13:27)
[2025-01-26] MEDS: Metoclopramide 10 MG/2 ML SDV IVPUSH ONE (14:39)
[2025-01-26] MEDS: Piperacillin/Tazobactam 4.5 GM in Sodium Chloride 0.9% 100 ML IV ONE (14:41)
[2025-01-26] MEDS: Losartan 50 MG Tab PO ONE (14:42)
[2025-01-26 18:54] VITALS: BP 194/78; PULSE 74
== END 2025-01-26 15:13 ==
LOC: JD.ED 11:03
DX: K35.80 Unspecified acute appendicitis (principal); I11.0 Hypertensive heart disease with heart failure; I50.9 Heart failure, unspecified; K21.9 Gastro-esophageal reflux disease without esophagitis; E11.9 Type 2 diabetes mellitus without complications; Z88.5 Allergy status to narcotic agent; Z88.8 Allergy status to other drugs, medicaments and biological substances; Z79.899 Other long term (current) drug therapy; Z79.4 Long term (current) use of insulin; Z79.82 Long term (current) use of aspirin; Z90.49 Acquired absence of other specified parts of digestive tract
CPT/HCPCS: 36415; 71045; 74177; 80053; 81001; 83690; 83735; 83880; 84484; 85025; 86140; 93005; 96361; 96365; 96375; 96376; 99285; A9270; J1920; J2270; J2405; J2543; J2765; J7030; Q9967; 93010